=== PATIENT | female | born 2000 | race Hispanic/Latino ===

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

== ENCOUNTER 2019-06-21 13:16 | Emergency (ER) | payer OTHER ==
[2019-06-21] MEDS ORDERED: EPINEPHrine 1 MG/ML AMP ONE (13:36)
[2019-06-21] MEDS ORDERED: diphenhydrAMINE 50 MG/ML VIAL ONE (13:36)
[2019-06-21] MEDS ORDERED: Famotidine In NaCl 20 mg/50 ml Premix Bag ONE (13:38)
[2019-06-21] MEDS ORDERED: methylPREDNISolone Sod Succ/PF 125 MG/2 ML VIAL ONE (14:03)
[2019-06-21] MEDS ORDERED: Sodium Chloride 0.9% 1,000 ML ONE (14:50)
== END 2019-06-21 16:04 | disposition home or self-care (01) ==
LOC: MADERS 13:16
DX: L50.0 Allergic urticaria (principal)
CPT/HCPCS: 94640; 94760; 96361; 96365; 96375; J0171; J1200; J2930; J7050; J7620

== ENCOUNTER 2023-03-22 23:08 | Emergency (ER) | payer OTHER | END 2023-03-22 23:41 | disposition home or self-care (01) | LOC: MADERS 23:08 | DX: R21 Rash and other nonspecific skin eruption (principal) | CPT/HCPCS: 99282 ==

== ENCOUNTER 2023-04-29 08:34 | Emergency (ER) | payer OTHER ==
[2023-04-29 09:17] LABS: Bilirubin Negative (Negative); Blood, Urine Negative (Negative); Clarity Clear (Clear); Glucose, Urine (Dipstick) Negative (Negative); Ketone, Urine Negative (Negative); Leukocyte Negative (Negative); Nitrite Negative (Negative); Protein, Urine (Dipstick) Negative (Neg-Trace); Urobilinogen 0.2 mg/dL (Less than 2)
[2023-04-29 09:23] LABS: Bacteria/HPF Rare-Few HPF (None Seen); CAUTI Indications for Culture Pelvic or flank pain; RBC/HPF None Seen HPF (0-3); Sperm/HPF Rare HPF (None Seen); WBC/HPF 0-3 HPF (0-3)
[2023-04-29 09:24] LABS: Urine Culture Reflex No No
== END 2023-04-29 09:25 | disposition home or self-care (01) ==
LOC: MADERS 08:34
DX: O26.893 Other specified pregnancy related conditions, third trimester (principal); Z3A.35 35 weeks gestation of pregnancy
CPT/HCPCS: 81001; 99284